=== PATIENT | male | born 1995 | race Caucasian/White ===

== ENCOUNTER 2017-01-15 21:26 | Emergency (ER) | payer MEDICAID, OTHER ==
[~2017-01-15] VITALS: Ht 185.4 cm; Wt 117.6 kg
[2017-01-15 21:36] VITALS: Ht 185.4 cm; Wt 117.6 kg
[2017-01-15 23:28] LABS: ADD UMIC YES; URINE BILIRUBIN (Dip) NEGATIVE (NEGATIVE); URINE BLOOD (Dip) 3+ (NEGATIVE); URINE COLOR LT. YELLOW (YELLOW); URINE GLUCOSE (Dip) NEGATIVE (NEGATIVE); URINE KETONES (Dip) NEGATIVE (NEGATIVE); URINE LEUKOCYTE ESTERASE (Dip) 2+ (NEGATIVE); URINE NITRITE (Dip) NEGATIVE (NEGATIVE); URINE TOTAL PROTEIN (Dip) 1+ (NEGATIVE); URINE UROBILINOGEN (Dip) 0.2 E.U./dL (0.1-1.0)
[2017-01-15 23:55] LABS: SQUAMOUS EPITHELIAL CELL,UR FEW
[2017-01-15 23:56] LABS: BACTERIA,URINE MODERATE
[2017-01-16] MEDS ORDERED: IBUP800T25 PO (00:27)
[2017-01-16] MEDS ORDERED: CIPR500T4 PO (00:27)
[2017-01-16] MEDS ORDERED: DOXY100T20 PO (00:27)
[2017-01-16] MEDS ORDERED: IBUPROFEN 800 MG TAB PO ONE (00:30)
--- NOTE | 2017-01-16 00:39 | ERD ---
ER Documentation Chief Complaint Date/Time DATE: 01/16/17 TIME: 00:34 Chief Complaint PAINFUL URINATION SINCE YESTERDAY WITH FREQUENCY HPI 21-year-old patient with significant past medical history presents the ED complaining of dysuria that started yesterday. States that it feels uncomfortable and feels like a tingling sensation. Feels like it is a burning sensation. States that he is not sexually active. States that the last time he had sexual intercourse was 8 months ago. Denies any chest pain, shortness of breath, abdominal pain, nausea, vomiting, diarrhea. ROS All systems reviewed and are negative except as per history of present illness. Medications Home Meds Active Scripts Ibuprofen* (Motrin*) 800 Mg Tab, 800 MG PO Q6, #30 TAB Prov:SIMBA OLIVA PA-C 01/16/17 Ciprofloxacin Hcl* (Ciprofloxacin Hcl*) 500 Mg Tablet, 500 MG PO BID for 10 Days , TAB Prov:SIMBA OLIVA PA-C 01/16/17 Doxycycline Hyclate* (Doxycycline Hyclate*) 100 Mg Tablet.dr, 100 MG PO BID for 10 Days, TAB Prov:SIMBA OLIVA PA-C 01/16/17 Allergies Allergies: Coded Allergies: No Known Allergy (Unverified , 05/24/14) PMhx/Soc History of Surgery: No Anesthesia Reaction: No Hx Neurological Disorder: No Hx Respiratory Disorders: No Hx Cardiac Disorders: No Hx Psychiatric Problems: No Hx Miscellaneous Medical Probl: Yes (UTI) Hx Alcohol Use: No Hx Substance Use: No Hx Tobacco Use: No Physical Exam Vitals Vital Signs Date Time Temp Pulse Resp B/P Pulse Ox O2 Delivery O2 Flow Rate FiO2 01/15/17 21:36 97.8 107 18 138/85 97 Physical Exam Const: [id number], well-nourished. In no acute distress. Head: Atraumatic, normocephalic Eyes: Normal Conjunctiva without injection. No purulent discharge. ENT: Normal external ear, nose. Moist oropharynx without tonsillar exudates. Non -erythematous pharynx. Uvula midline. No drooling. No trismus. Neck: No cervical midline tenderness. Full range of motion. No meningismus. No cervical lymphadenopathy. No JVD. Resp: Clear to auscultation bilaterally. No wheezing, rhonchi, rales, or crackles. No accessory muscle use. No retractions. Cardio: Regular rate and rhythm. No murmurs, rubs or gallops. Abd: Soft, nontender, non distended. Normal bowel sounds. No palpable masses. No rebound tenderness. No guarding. Negative McBurney's point. Negative psoas sign. Negative obturator sign. : Uncircumcised penis. No penile discharge. No erythema. No edema. No scrotal tenderness. No paraphimosis. No phimosis. Skin: No petechiae or rashes Back: No midline tenderness. No CVA tenderness. Ext: No cyanosis, or edema. Neur: Awake and alert. Normal gait. Normal coordination. Psych: Normal Mood and Affect Results 24 hrs Laboratory Tests Test 01/15/17 23:15 Urine Bacteria MODERATE Urine Bilirubin NEGATIVE Urine Clarity SLIGHTLY CLOUDY Urine Color LT. YELLOW Urine Glucose NEGATIVE% Urine Hemoglobin 3+ Urine Ketones NEGATIVE Urine Leukocyte Esterase 2+ Urine Microscopic RBC 10-25/HPF Urine Microscopic WBC >200/HPF Urine Nitrite NEGATIVE Urine Specific [place] >=1.030 Urine Squamous Epithelial Cells FEW Urine Total Protein 1+ Urine Urobilinogen 0.2 E.U./dL Urine Yeast FEW Urine pH 6.0 Current Medications Medications (Trade) Dose Ordered Sig/Rupali Route PRN Reason Start Time Stop Time Status Last Admin Dose Admin Ibuprofen (Motrin) 800 mg ONCE ONCE PO 01/16/17 00:30 01/16/17 00:31 DC 01/16/17 00:25 Procedures/MDM 21-year-old male with no significant past medical history presents the ED complaining of dysuria. Patient is afebrile and nontoxic-appearing. Patient has normal vital signs. Urinalysis was ordered to further evaluate patient. He had chlamydia urine test was also sent out to further evaluate patient with a urine culture. Urinalysis shows 2+ leukocyte esterase, greater than 200 white blood cells, 1+ hematuria. Patient was given ibuprofen here in the ED with improvement of his symptoms. This case was discussed with my supervising physician, Dr. Yeyo Macdonald. Patient will be discharged with a prescription for doxycycline and ciprofloxacin for 10 days. There is low suspicion for pyelonephritis as patient does not have any CVA tenderness. No fever noted. Low suspicion for acute abdomen, testicular torsion. Follow up with primary care physician in 1-2 days. Instructed patient to return to the ED sooner for any worsening symptoms. Patient's questions were answered. Patient understood and agreed with discharge plan. Patient discharged stable. Departure Diagnosis: Primary Impression: Dysuria Condition: Stable Patient Instructions: Urinary Tract Infections in Men Referrals: COMMUNITY CLINICS YOU HAVE RECEIVED A MEDICAL SCREENING EXAM AND THE RESULTS INDICATE THAT YOU DO NOT HAVE A CONDITION THAT REQUIRES URGENT TREATMENT IN THE EMERGENCY DEPARTMENT. FURTHER EVALUATION AND TREATMENT OF YOUR CONDITION CAN WAIT UNTIL YOU ARE SEEN IN YOUR DOCTORS OFFICE WITHIN THE NEXT 1-2 DAYS. IT IS YOUR RESPONSIBILITY TO MAKE AN APPOINTMENT FOR FOLOW-UP CARE. IF YOU HAVE A PRIMARY DOCTOR --you should call your primary doctor and schedule an appointment IF YOU DO NOT HAVE A PRIMARY DOCTOR YOU CAN CALL OUR PHYSICIAN REFERRAL HOTLINE AT IF YOU CAN NOT AFFORD TO SEE A PHYSICIAN YOU CAN CHOSE FROM THE FOLLOWING [facility] [address] [facility] [address] [facility] [facility] [address] [facility] [address] [facility] [address] [facility]. [facility]. [address] [facility]. [facility] YOU HAVE RECEIVED A MEDICAL SCREENING EXAM AND THE RESULTS INDICATE THAT YOU DO NOT HAVE A CONDITION THAT REQUIRES URGENT TREATMENT IN THE EMERGENCY DEPARTMENT. FURTHER EVALUATION AND TREATMENT OF YOUR CONDITION CAN WAIT UNTIL YOU ARE SEEN IN YOUR DOCTORS OFFICE WITHIN THE NEXT 1-2 DAYS. IT IS YOUR RESPONSIBILITY TO MAKE AN APPOINTMENT FOR FOLOW-UP CARE. IF YOU HAVE A PRIMARY DOCTOR --you should call your primary doctor and schedule and appointment IF YOU DO NOT HAVE A PRIMARY DOCTOR YOU CAN CALL OUR PHYSICIAN REFERRAL HOTLINE AT . IF YOU CAN NOT AFFORD TO SEE A PHYSICIAN YOU CAN CHOSE FROM THE FOLLOWING [facility]: [facility] [address] [place] [address] [facility] [address] [place] [address] [facility] [address] [place] [address] [facility] URGENT C[facility]SPECIALTIES Additional Instructions: FOLLOW UP WITH YOUR PRIMARY CARE PHYSICIAN TOMORROW for referral to urologist. Return to this facility if you are not improving as expected. SIMBA OLIVA PA-C Jan 16, 2017 00:39
[2017-01-16 00:56] VITALS: BP 136/70; PULSE 88; RESP 18; TEMP 98.6
== END 2017-01-16 00:56 | disposition home or self-care (01) ==
LOC: FTE 21:26
DX: R30.0 Dysuria (principal)
CPT/HCPCS: 81001; 81003; 87086; 87591; 99284